=== PATIENT | female | born 1965 | race Caucasian/White ===

== ENCOUNTER 2018-08-21 07:14 | Inpatient (IN) | payer MEDICAID ==
[~2018-08-21] VITALS: Ht 160 cm; Wt 80.7 kg
[2018-08-21] MEDS ORDERED: LACTATED RINGERS 1,000 ML IV SCH (08:15)
[2018-08-21] MEDS ORDERED: BUPIVACAINE HCL/PF 0.5% (5MG/ML) 10ML ONE ×2 (08:23→10:58)
[2018-08-21] MEDS ORDERED: ALBU18HF2 IH (08:48)
[2018-08-21] MEDS ORDERED: LOSA25TA12 PO (08:48)
[2018-08-21] MEDS ORDERED: LEVOFLOXACIN 500MG PREMIX 100 ML IV ONE (09:43)
[2018-08-21] MEDS ORDERED: PROPOFOL 200MG/20ML VIAL IV ONE (10:13)
[2018-08-21] MEDS ORDERED: MIDAZOLAM HCL 2 MG/2 ML VIAL ONE ×2 (10:13→18:35)
[2018-08-21] MEDS ORDERED: FENTANYL CITRATE/PF 50MCG/ML 2ML VIAL ONE ×2 (10:13→18:35)
[2018-08-21] MEDS ORDERED: ROCURONIUM BROMIDE 10MG/ML VIAL 5ML IV ONE ×2 (10:13→10:50)
[2018-08-21] MEDS ORDERED: LIDOCAINE HCL 1% 20ML VIAL (Pyxis) INJ ONE (10:14)
[2018-08-21] MEDS ORDERED: CEFAZOLIN SODIUM 1000MG/VIAL ONE (10:15)
[2018-08-21] MEDS ORDERED: DEXAMETHASONE 4MG/ML 1ML VIAL ONE ×2 (10:59→11:55)
[2018-08-21] MEDS ORDERED: NEOSTIGMINE METHYLSULFATE 1MG/ML 10 ML VIAL ONE (11:28)
[2018-08-21] MEDS ORDERED: GLYCOPYRROLATE 0.2 MG/ML 2ML VIAL ONE (11:28)
[2018-08-21] MEDS ORDERED: MEPERIDINE HCL/PF 25MG/ML CPJ IV PRN (11:30)
[2018-08-21] MEDS ORDERED: FENTANYL CITRATE/PF 50MCG/ML 2ML VIAL IV PRN (11:30)
[2018-08-21] MEDS ORDERED: MORPHINE SULFATE 4 MG/ML CPJ (NOT FOR IM USE) IV PRN (11:30)
[2018-08-21] MEDS ORDERED: ONDANSETRON HCL 4MG/2ML INJ IV PRN ×2 (11:30→19:00)
[2018-08-21] MEDS ORDERED: SKIN ADHESIVE 0.7 GM EA TOP ONE (11:35)
[2018-08-21] MEDS ORDERED: KETOROLAC 30MG/ML VIAL ONE (11:39)
[2018-08-21] MEDS ORDERED: METOCLOPRAMIDE HCL 10MG/2ML VIAL ONE (11:39)
[2018-08-21] MEDS ORDERED: RACEPINEPHRINE 2.25% 0.5ML NEB VIAL HHN PRN ×2 (12:15→16:15)
[2018-08-21] MEDS ORDERED: MIDAZOLAM HCL 5 MG/5 ML VIAL IV NR (12:15)
[2018-08-21] MEDS ORDERED: RACEPINEPHRINE 2.25% 0.5ML NEB VIAL HHN ONE (12:15)
[2018-08-21] MEDS: HYDROMORPHONE HCL/PF 2MG/ML CPJ IV PRN ×2 (12:54→14:24)
[2018-08-21 16:00] VITALS: BP_SYST 116; BP_DIAS 65; BP_DIAS 67
[2018-08-21] MEDS ORDERED: CEFAZOLIN 2,000 MG in DEXT 5% WATER 100 ML IV NR (18:30)
[2018-08-21] MEDS ORDERED: DEXT 5%/0.45% NACL KCL 20MEQ/L 1,000 ML IV SCH (18:30)
[2018-08-21] MEDS ORDERED: IPRATROPIUM/ALBUTEROL 0.5-3(2.5)MG/3ML NEB HHN SCH (19:15)
[2018-08-21 20:00] VITALS: BP 115/59
[2018-08-21] MEDS: DEXT 5%/0.45% NACL 1000ML 1,000 ML IV SCH (23:12)
[2018-08-21] MEDS ORDERED: HYDROCODONE/ACETAMINOPHEN 5/325MG TABLET PO PRN (23:45)
[2018-08-22] VITALS: BP 116/61
[2018-08-22] MEDS: ACETAMINOPHEN 650MG SUPP PR PRN ×2 (00:26→16:21)
[2018-08-22] MEDS ORDERED: IPRATROPIUM/ALBUTEROL 0.5-3(2.5)MG/3ML NEB HHN PRN (00:30)
[2018-08-22 04:00] VITALS: BP 132/55
[2018-08-22] MEDS: DEXT 5%/0.45% NACL 1000ML 1,000 ML IV SCH ×2 (05:58→18:55)
[2018-08-22] MEDS: CEFAZOLIN 2,000 MG in DEXT 5% WATER 100 ML IV SCH ×3 (06:08→22:45)
[2018-08-22 08:00] VITALS: BP 128/72
[2018-08-22 08:08] LABS: BASOPHILS % 0.1 % (0.0-2.0); HEMATOCRIT. 36.8 % (36.0-48.0); HEMOGLOBIN. 12.2 g/dL (12.0-16.0); LYMPHOCYTES % 8.5 % (20.0-50.0); MEAN CORPUSCULAR HEMOGLOBIN 31.6 pg (28.0-32.0); MEAN CORPUSCULAR VOLUME 95.4 fL (81.0-99.0); MEAN PLATELET VOLUME 9.2 fl (7.4-10.4); MONOCYTES % 6.5 % (2.0-8.0); NEUTROPHILS % 84.9 % (40.0-76.0); PLATELET 211 x1000/uL (130-400); RED BLOOD CELL COUNT 3.86 mill/uL (4.2-5.4); RED CELL DISTRIBUTION WIDTH 12.8 % (11.6-14.6)
[2018-08-22 08:55] LABS: CHLORIDE 108 mEq/L (98-107)
[2018-08-22] MEDS: HYDROCODONE/ACETAMINOPHEN 5/325MG TABLET PO PRN ×3 (09:18→22:50)
[2018-08-22] MEDS: ENOXAPARIN 40MG/0.4ML SYR SUBCUT SCH (11:52)
[2018-08-22 12:00] VITALS: BP 143/59
[2018-08-22 16:00] VITALS: BP 108/60
[2018-08-22] MEDS: ACETAMINOPHEN 650MG/20.3ML UDC PO PRN (18:48)
[2018-08-22 20:00] VITALS: BP 140/71
[2018-08-23] VITALS (7 sets, daily range): BP systolic 111–132; BP diastolic 56–83
[2018-08-23] MEDS: CEFAZOLIN 2,000 MG in DEXT 5% WATER 100 ML IV SCH ×3 (07:03→21:15)
[2018-08-23] MEDS: DEXT 5%/0.45% NACL 1000ML 1,000 ML IV SCH ×3 (07:03→21:27)
[2018-08-23] MEDS: ENOXAPARIN 40MG/0.4ML SYR SUBCUT SCH (08:34)
[2018-08-23] MEDS: HYDROCODONE/ACETAMINOPHEN 5/325MG TABLET PO PRN ×2 (13:48→18:58)
[2018-08-23 13:54] LABS: HEMATOCRIT. 33.2 % (36.0-48.0); MEAN CORPUSCULAR HEMOGLOBIN 31.8 pg (28.0-32.0); MEAN CORPUSCULAR VOLUME 95.9 fL (81.0-99.0); PLATELET 194 x1000/uL (130-400); RED BLOOD CELL COUNT 3.47 mill/uL (4.2-5.4); RED CELL DISTRIBUTION WIDTH 12.8 % (11.6-14.6)
[2018-08-23 14:12] LABS: PLATELET ESTIMATE NORMAL
[2018-08-23] MEDS: ACETAMINOPHEN 650MG/20.3ML UDC PO PRN (21:14)
[2018-08-24] VITALS: BP 109/54
[2018-08-24 04:00] VITALS: BP 119/61
[2018-08-24] MEDS: CEFAZOLIN 2,000 MG in DEXT 5% WATER 100 ML IV SCH ×2 (06:49→14:16)
[2018-08-24 07:56] VITALS: BP 139/77
[2018-08-24] MEDS: DEXT 5%/0.45% NACL 1000ML 1,000 ML IV SCH ×2 (08:06→18:16)
[2018-08-24] MEDS: HYDROCODONE/ACETAMINOPHEN 5/325MG TABLET PO PRN ×2 (08:46→14:45)
[2018-08-24] MEDS: ENOXAPARIN 40MG/0.4ML SYR SUBCUT SCH (08:47)
[2018-08-24 12:00] VITALS: BP 126/62
[2018-08-24 16:00] VITALS: BP 110/64
[2018-08-24 20:00] VITALS: BP 114/60
[2018-08-25] VITALS (7 sets, daily range): BP systolic 103–125; BP diastolic 57–70
[2018-08-25] MEDS: ENOXAPARIN 40MG/0.4ML SYR SUBCUT SCH (08:47)
[2018-08-25] MEDS: DEXT 5%/0.45% NACL 1000ML 1,000 ML IV SCH (13:54)
== END 2018-08-25 17:42 | disposition home or self-care (01) | DRG 231 ==
LOC: OR 07:14 → 6EST 07:15
PROVIDERS: ADMIT Surgery; ATTEND Surgery
PROC: 0DTF4ZZ Resection of Right Large Intestine, Percutaneous Endoscopic Approach (ICD-10-PCS; principal; 2018-08-21)
DX: D12.0 Benign neoplasm of cecum (principal)
CPT/HCPCS: 36415; 80048; 85007; 85027; 86850; 86900; 88309; 94640; J0690; J1100; J1170; J1650; J1885; J1956; J2250; J2405; J2704; J2710; J2765; J3010; J3490; J7060; J7070